=== PATIENT | male | born 1985 | race Caucasian/White ===

== ENCOUNTER 2017-09-01 22:11 | Emergency (ER) | payer MEDICAID, OTHER ==
[~2017-09-01] VITALS: Ht 170.2 cm; Wt 74.8 kg
[~2017-09-01 22:11] MED LIST: COLACE100 MG ORAL; FERROUS SULFAT325 MG ORAL; SENNA S TABLET1 EAC1 PO; SEROQUEL25 MG ORAL; VITAMIN D400 INTLU ORAL
[2017-09-01 22:20] VITALS: BP 132/98
[2017-09-01] MEDS ORDERED: SENNOSIDES8.6 MG ORAL (22:31)
[2017-09-01] MEDS ORDERED: ACETAMINOPHEN325 M1 ORAL (22:31)
[2017-09-01] MEDS ORDERED: ALUM-MAG HYDRO360 ML PO (22:31)
[2017-09-01] MEDS ORDERED: VENTOLIN HFA18 GM INH (22:31)
[2017-09-01] MEDS ORDERED: DEPAKOTE250 MG PO (22:31)
[2017-09-01] MEDS ORDERED: IMODIUM A-D2 M2 PO (22:31)
[2017-09-01] MEDS ORDERED: MILK OF MA400 MG/51 ORAL (22:31)
[2017-09-01] MEDS ORDERED: ARNUITY ELLIP100 MCG IH (22:31)
[2017-09-01 22:48] LABS: BASOPHILS % (AUTO) 1.9 % (0.0-2.0); EOSINOPHILS % (AUTO) 6.1 % (0.0-3.0); HEMATOCRIT 34.3 % (42.0-52.0); HEMOGLOBIN 11.5 G/DL (14.2-18.0); LYMPHOCYTES % (AUTO) 15.2 % (20.0-45.0); MEAN CORPUSCULAR VOLUME 90 FL (80-99); MONOCYTES % (AUTO) 7.6 % (1.0-10.0); NEUTROPHILS % (AUTO) 69.2 % (45.0-75.0); PLATELET COUNT 103 K/UL (150-450); RED BLOOD COUNT 3.82 M/UL (4.70-6.10); WHITE BLOOD COUNT 7.4 K/UL (4.8-10.8)
[2017-09-01 22:56] LABS: ANION GAP 10 mmol/L (5-15); BLOOD UREA NITROGEN 36 mg/dL (7-18); CALCIUM 7.9 MG/DL (8.5-10.1); CARBON DIOXIDE 24 MMOL/L (21-32); CHLORIDE 109 MMOL/L (98-107); CREATININE 1.8 MG/DL (0.55-1.30); POTASSIUM 3.9 MMOL/L (3.5-5.1); SODIUM 143 MMOL/L (136-145)
[2017-09-01 22:59] LABS: ALANINE AMINOTRANSFERASE 15 U/L (12-78); ALBUMIN 3.2 G/DL (3.4-5.0); ALKALINE PHOSPHATASE 45 U/L (46-116); ASPARTATE AMINO TRANSFERASE 13 U/L (15-37); BILIRUBIN,TOTAL 0.2 MG/DL (0.2-1.0); CREATINE KINASE 113 U/L (26-308)
[2017-09-01] MEDS ORDERED: Depakote 500mg tab ORAL ONE (23:15)
--- NOTE | 2017-09-01 23:16 | Emergency Room Report ---
History of Present Illness General Chief Complaint: Seizure Source: Patient, EMS Present Illness HPI The patient presents from a senior living facility via EMS after having a seizure. 10 mg of Versed were given to the patient on transport. The patient is longer seizing at this time. There was some oral trauma. The patient is taking Depakote for bipolar disorder and also for seizures. He is in a facility where he is supposed to be getting his medication and claims that he has been able to take his medication. The patient denies fevers, head trauma, nausea, vomiting, diarrhea, dysuria, joint pain. He denies pain in his mouth. The patient is status post stroke and has left hemiparesis but able to ambulate. The patient is bipolar. The patient states that these not been getting enough sleep because his roommates been bothering him. Sclerae asking his private doctor for something to help him sleep at night. He denies suicidal or homicidal ideation Allergies: Coded Allergies: NO KNOWN DRUG ALLERGIES (Unverified Allergy, Unknown, 08/12/14) Patient History Past Medical History: see triage record Social History: Reports: smoking; Denies: alcohol use, drug use Social History Narrative senior living facility Reviewed Nursing Documentation: PMH: Agreed; PSxH: Agreed Nursing Documentation-PMH Hx Cardiac Problems: Yes - Aortic Valve Disorder Hx Hypertension: Yes Hx Cancer: No Hx Gastrointestinal Problems: Yes History Of Psychiatric Problem: Yes - bipolar, anxiety disorder, insomnia Hx Neurological Problems: Yes Review of Systems All Other Systems: negative except mentioned in HPI Physical Exam Vital Signs Date Time Temp Pulse Resp B/P (MAP) Pulse Ox O2 Delivery O2 Flow Rate FiO2 09/01/17 22:01 98.0 84 18 132/98 100 Non-Rebreather 15.0 98.1 Sp02 EP Interpretation: reviewed, normal General Appearance: no apparent distress, other - GCS 14, Chronically Ill, Postictal Head: normocephalic, atraumatic Eyes: bilateral eye PERRL, bilateral eye abnormal EOM - slight nystagmus, bilateral eye Scleral Injection ENT: moist mucus membranes, other - trauma to lower lip Neck: supple Respiratory: lungs clear, normal breath sounds Cardiovascular #1: regular rate, rhythm Cardiovascular #2: 2+ radial (R) Gastrointestinal: normal inspection, normal bowel sounds, non tender, no mass, non-distended Musculoskeletal: back normal, normal range of motion Neurologic: alert, 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 He has a history of seizures. He is on Depakote allegedly for bipolar disorder. Differential includes breakthrough seizure, subtherapeutic medication level, electrolyte abnormalities, occult infection amongst others. Evaluation will be with EKG, chest x-ray and labs including Depakote level. EKG is sinus rhythm with left ventricular hypertrophy and peaked T waves. Chest x-ray is unremarkable. Labs are significant for subtherapeutic at apical level. The patient is given Depakote 500 mg by mouth. The patient observed and stable here. It's felt that he probably seized because of subtherapeutic Depakote (along with lack of sleep and some agitation about room-mate). He's coming from senior living facility and will be observed here. We will increase his Depakote oral intake by 250 mg twice a day. His total dose will be 750 mg twice a day. He fully conversant and ambulatory. Still with L sided weakness (chronic). Patient stable for outpatient observation and treatment Laboratory Tests Test 09/01/17 00:00 09/01/17 22:10 Urine Color Pale yellow Urine Appearance Clear Urine pH 7 (4.5-8.0) Urine Specific [place] 1.005 (1.005-1.035) Urine Protein 2+ (NEGATIVE) H Urine Glucose (UA) Negative (NEGATIVE) Urine Ketones Negative (NEGATIVE) Urine Occult Blood Negative (NEGATIVE) Urine Nitrite Negative (NEGATIVE) Urine Bilirubin Negative (NEGATIVE) Urine Urobilinogen Normal MG/DL (0.0-1.0) Urine Leukocyte Esterase Negative (NEGATIVE) Urine RBC Pending Urine WBC Pending Urine Squamous Epithelial Cells Pending Urine Bacteria Pending Urine Opiates Screen Negative (NEGATIVE) Urine Barbiturates Screen Negative (NEGATIVE) Phencyclidine (PCP) Screen Negative (NEGATIVE) Urine Amphetamines Screen Negative (NEGATIVE) Urine Benzodiazepines Screen Positive (NEGATIVE) H Urine Cocaine Screen Negative (NEGATIVE) Urine Marijuana (THC) Screen Negative (NEGATIVE) White Blood Count 7.4 K/UL (4.8-10.8) Red Blood Count 3.82 M/UL (4.70-6.10) L Hemoglobin 11.5 G/DL (14.2-18.0) L Hematocrit 34.3 % (42.0-52.0) L Mean Corpuscular Volume 90 FL (80-99) Mean Corpuscular Hemoglobin 30.1 PG (27.0-31.0) Mean Corpuscular Hemoglobin Concent 33.5 G/DL (32.0-36.0) Red Cell Distribution Width 12.0 % (11.6-14.8) Platelet Count 103 K/UL (150-450) L Mean Platelet Volume 13.5 FL (6.5-10.1) H Neutrophils (%) (Auto) 69.2 % (45.0-75.0) Lymphocytes (%) (Auto) 15.2 % (20.0-45.0) L Monocytes (%) (Auto) 7.6 % (1.0-10.0) Eosinophils (%) (Auto) 6.1 % (0.0-3.0) H Basophils (%) (Auto) 1.9 % (0.0-2.0) Sodium Level 143 MMOL/L (136-145) Potassium Level 3.9 MMOL/L (3.5-5.1) Chloride Level 109 MMOL/L (98-107) H Carbon Dioxide Level 24 MMOL/L (21-32) Anion Gap 10 mmol/L (5-15) Blood Urea Nitrogen 36 mg/dL (7-18) H Creatinine 1.8 MG/DL (0.55-1.30) H Estimate Glomerular Filtration Rate 43.9 mL/min (>60) Glucose Level 90 MG/DL (74-106) Calcium Level 7.9 MG/DL (8.5-10.1) L Total Bilirubin 0.2 MG/DL (0.2-1.0) Aspartate Amino Transferase (AST) 13 U/L (15-37) L Alanine Aminotransferase (ALT) 15 U/L (12-78) Alkaline Phosphatase 45 U/L (46-116) L Total Creatine Kinase 113 U/L (26-308) Total Protein 6.4 G/DL (6.4-8.2) Albumin 3.2 G/DL (3.4-5.0) L Globulin 3.2 g/dL Albumin/Globulin Ratio 1.0 (1.0-2.7) Valproic Acid Level 35 MCG/ML (50-100) L EKG Diagnostic Results Rate: normal Rhythm: NSR ST Segments: no acute changes - peaked T waves Rhythm Strip Diag. Results EP Interpretation: other Rhythm: NSR, no PVC's, no ectopy Chest X-Ray Diagnostic Results Chest X-Ray Diagnostic Results : Chest X-Ray Ordered: Yes # of Views/Limited/Complete: 1 View Indication: Other EP Interpretation: Yes Interpretation: no consolidation, no effusion, no pneumothorax Impression: No acute disease Electronically Signed by: Electronically signed by Augustus Bae MD Last Vital Signs Date Time Temp Pulse Resp B/P (MAP) Pulse Ox O2 Delivery O2 Flow Rate FiO2 09/02/17 04:40 98.1 82 18 108/33 96 Room Air 15.0 98.1 Status: improved Disposition: XFER SNF Condition: Improved Referrals: KARENA PACHECO (PCP) Augustus Bae M.D. Sep 01, 2017 23:16
[2017-09-02 00:41] VITALS: BP 108/33
[2017-09-02 01:13] LABS: APPEARANCE,URINE CLEAR; BILIRUBIN, URINE NEGATIVE (NEGATIVE); COLOR,URINE PALE YELLOW; GLUCOSE, URINE (UA) NEGATIVE (NEGATIVE); KETONES,URINE NEGATIVE (NEGATIVE); LEUKOCYTE ESTERASE ,URINE NEGATIVE (NEGATIVE); NITRITE,URINE NEGATIVE (NEGATIVE); PH,URINE 7 (4.5-8.0); PROTEIN,URINE 2+ (NEGATIVE); UROBILINOGEN,URINE NORMAL MG/DL (0.0-1.0)
[2017-09-02 04:15] VITALS: BP 115/45
[2017-09-02 04:40] VITALS: BP 108/33
--- NOTE | 2017-09-02 08:58 | Diagnostic Imaging Report ---
Indication: Shortness of breath Technique: XRAY Chest 1v Comparison: 08/12/2014 Findings: Cardiac silhouette is prominent. There is mild pulmonary vascular congestion. There is no consolidation or pleural effusion. Osseous structures are grossly stable. Impression: Cardiomegaly. Mild pulmonary vascular congestion. Clinical correlation/follow-up recommended.
== END 2017-09-02 04:36 ==
LOC: EDBD 22:11 → EMR 22:15
DX: G40.409 Other generalized epilepsy and epileptic syndromes, not intractable, without status epilepticus (principal); Z91.14 Patient's other noncompliance with medication regimen; Z86.73 Personal history of transient ischemic attack (TIA), and cerebral infarction without residual deficits; I10 Essential (primary) hypertension; F31.9 Bipolar disorder, unspecified; F41.9 Anxiety disorder, unspecified; G47.00 Insomnia, unspecified; R06.02 Shortness of breath
CPT/HCPCS: 36415; 71045; 80053; 80164; 80307; 81003; 82550; 85025; 93005; 96374; 96375; 99284

== ENCOUNTER 2018-03-10 22:06 | Emergency (ER) | payer OTHER ==
[~2018-03-10] VITALS: Ht 170.2 cm; Wt 59.0 kg
[~2018-03-10 22:06] MED LIST changes: +ACETAMINOPHEN325 M1 ORAL; +ALUM-MAG HYDRO360 ML PO; +ARNUITY ELLIP100 MCG IH; +DEPAKOTE250 MG PO; +IMODIUM A-D2 M2 PO; +MILK OF MA400 MG/51 ORAL; +SENNOSIDES8.6 MG ORAL; +VENTOLIN HFA18 GM INH
[2018-03-10 22:42] LABS: BASOPHILS % (AUTO) 1.1 % (0.0-2.0); EOSINOPHILS % (AUTO) 1.6 % (0.0-3.0); HEMATOCRIT 32.8 % (42.0-52.0); HEMOGLOBIN 11.6 G/DL (14.2-18.0); LYMPHOCYTES % (AUTO) 7.6 % (20.0-45.0); MEAN CORPUSCULAR VOLUME 91 FL (80-99); MONOCYTES % (AUTO) 5.1 % (1.0-10.0); NEUTROPHILS % (AUTO) 84.6 % (45.0-75.0); PLATELET COUNT 123 K/UL (150-450); RED BLOOD COUNT 3.61 M/UL (4.70-6.10); RED CELL DISTRIBUTION WIDTH 11.2 % (11.6-14.8); WHITE BLOOD COUNT 12.4 K/UL (4.8-10.8)
[2018-03-10 22:48] LABS: ANION GAP 9 mmol/L (5-15); BLOOD UREA NITROGEN 33 mg/dL (7-18); CALCIUM 9.4 MG/DL (8.5-10.1); CARBON DIOXIDE 26 MMOL/L (21-32); CHLORIDE 106 MMOL/L (98-107); CREATININE 1.7 MG/DL (0.55-1.30); POTASSIUM 4.4 MMOL/L (3.5-5.1); SODIUM 141 MMOL/L (136-145)
[2018-03-10 22:53] LABS: BILIRUBIN, URINE NEGATIVE (NEGATIVE); COLOR,URINE PALE YELLOW; GLUCOSE, URINE (UA) NEGATIVE (NEGATIVE); KETONES,URINE NEGATIVE (NEGATIVE); LEUKOCYTE ESTERASE ,URINE 1+ (NEGATIVE); NITRITE,URINE NEGATIVE (NEGATIVE); PH,URINE 6 (4.5-8.0); PROTEIN,URINE 4+ (NEGATIVE); UROBILINOGEN,URINE NORMAL MG/DL (0.0-1.0)
[2018-03-10 23:01] VITALS: BP 170/77
[2018-03-10 23:13] LABS: APPEARANCE,URINE CLEAR
--- NOTE | 2018-03-10 23:13 | Emergency Room Report ---
History of Present Illness General Chief Complaint: Seizure Source: Patient, Medical Record, EMS Present Illness HPI This a 32-year-old male who is a long-term patient. He has a history of seizure and anoxic brain injury. He presents with chief complaint of a seizure. 3 episodes today. Each lasting anywhere from 30 seconds to 1-2 minutes. EMS gave him 5 motor Versed. Seizures tonic/clonic in nature. No trauma. No incontinence of bowel or urine. No oral trauma. Allergies: Coded Allergies: NO KNOWN DRUG ALLERGIES (Unverified Allergy, Unknown, 08/12/14) Patient History Past Medical History: see triage record, old chart reviewed, seizures Past Surgical History: other Pertinent Family History: none Social History: Denies: smoking Immunizations: other Reviewed Nursing Documentation: PMH: Agreed; PSxH: Agreed Nursing Documentation-PMH Past Medical History: No History, Except For Hx Cardiac Problems: Yes - Aortic Valve Disorder Hx Hypertension: Yes Hx Cancer: No Hx Gastrointestinal Problems: Yes Hx Dialysis: No - renal failure Hx Neurological Problems: Yes Hx Cerebrovascular Accident: Yes Hx Seizures: Yes Review of Systems Eye: Denies: eye pain, blurred vision ENT: Denies: ear pain, nose congestion, throat swelling Respiratory: Denies: cough, shortness of breath Cardiovascular: Denies: chest pain, palpitations Gastrointestinal: Denies: abdominal pain, diarrhea, nausea, vomiting Musculoskeletal: Denies: back pain, joint pain Skin: Denies: rash Neurological: Denies: headache, numbness Endocrine: Denies: increased thirst, increased urine Hematologic/Lymphatic: Denies: easy bruising All Other Systems: negative except mentioned in HPI Physical Exam Vital Signs Date Time Temp Pulse Resp B/P (MAP) Pulse Ox O2 Delivery O2 Flow Rate FiO2 03/10/18 21:58 97.9 102 18 170/77 98 Room Air vital normal Sp02 EP Interpretation: reviewed, normal General Appearance: well appearing, no apparent distress, alert Head: normocephalic, atraumatic Eyes: bilateral eye PERRL, bilateral eye EOMI ENT: hearing grossly normal, normal pharynx Neck: full range of motion, supple, no meningismus Respiratory: chest non-tender, lungs clear, normal breath sounds Cardiovascular #1: regular rate, rhythm, no murmur Gastrointestinal: normal bowel sounds, non tender, no mass, no organomegaly, no bruit, non-distended Musculoskeletal: back normal, normal range of motion, other - no deformity Neurologic: alert, grossly normal Psychiatric: mood/affect normal Skin: warm/dry Medical Decision Making Diagnostic Impression: Primary Impression: Seizure disorder ER Course Patient with seizure disorder. His Depakote level is slightly low normal. I gave him half dose loading to bring it higher. No evidence of any focal deficit or injury to warrant CT scan. We'll discharge back to long-term. Lab Results Impression labs unremarkable Rhythm Strip Diag. Results Rhythm Strip Time: 23:12 EP Interpretation: yes Rate: 80 Rhythm: NSR, no PVC's, no ectopy Last Vital Signs Date Time Temp Pulse Resp B/P (MAP) Pulse Ox O2 Delivery O2 Flow Rate FiO2 03/10/18 23:01 102 18 Room Air 03/10/18 23:01 97.9 170/77 98 Status: improved Disposition: XFER SNF Condition: Stable Referrals: [facility]ERR[facility] (PCP) Patient Instructions: Seizure, Adult Additional Instructions: Follow-up with your doctor in 7 days. Return if worse. Gopal Martinez MD Mar 10, 2018 23:12
[2018-03-10] MEDS ORDERED: Valproate Sodium INJ 500 MG in D5W 55 ML IVPB ONE (23:15)
[2018-03-11] VITALS: BP 111/40
[2018-03-11 00:05] VITALS: BP 111/40
== END 2018-03-11 00:05 ==
LOC: EDBD 22:06 → EMR 22:33
DX: G40.802 Other epilepsy, not intractable, without status epilepticus (principal); G93.1 Anoxic brain damage, not elsewhere classified; I10 Essential (primary) hypertension; I35.8 Other nonrheumatic aortic valve disorders; Z86.73 Personal history of transient ischemic attack (TIA), and cerebral infarction without residual deficits
CPT/HCPCS: 36415; 80048; 80164; 81001; 85025; 96365; 99284

== ENCOUNTER 2019-12-09 20:19 | Emergency (ER) | payer OTHER ==
[~2019-12-09] VITALS: Ht 170.2 cm; Wt 72.6 kg
--- NOTE | 2019-12-09 20:25 | Emergency Room Report ---
History of Present Illness General Chief Complaint: Seizure Source: Patient, Medical Record Present Illness HPI Patient is a 34-year-old male sent in from [facility] after seizure. Prior history of seizure disorder. Patient previous CVA and had been taking Depakote. Had approximately 20 minutes of seizure activity at the facility. Patient been given Versed 5 mg by EMS. Patient was subsequently postictal. Prior history of bipolar disorder. Previous tracheostomy. Recent negative coronavirus testing. 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 COVID-19 Screening: Negative COVID-19 COVID-19 Testing Source: SNF, 11/27 Patient History Past Medical History: see triage record Reviewed Nursing Documentation: PMH: Agreed; PSxH: Agreed Nursing Documentation-PMH Past Medical History: No History, Except For Hx Cardiac Problems: Yes - Aortic Valve Disorder Hx Hypertension: Yes Hx Cancer: No Hx Gastrointestinal Problems: Yes Hx Neurological Problems: Yes Hx Seizures: Yes Review of Systems All Other Systems: negative except mentioned in HPI Physical Exam Sp02 EP Interpretation: reviewed, normal General Appearance: normal inspection, well appearing, no apparent distress, alert, GCS 15 Head: atraumatic ENT: normal ENT inspection, hearing grossly normal, normal voice Neck: normal inspection, full range of motion, supple, no bony tend Respiratory: normal inspection, lungs clear, normal breath sounds, no respiratory distress, no retraction, no wheezing Cardiovascular #1: regular rate, rhythm, no edema Gastrointestinal: normal inspection, normal bowel sounds, non tender, soft, no guarding, no hernia Genitourinary: no CVA tenderness Musculoskeletal: normal inspection, back normal Neurologic: alert, oriented x3, responsive, normal inspection, other - slight aphasia Psychiatric: normal inspection, judgement/insight normal, mood/affect normal Skin: no rash Medical Decision Making Diagnostic Impression: Primary Impression: Acute renal failure (ARF) Additional Impression: Epileptic seizure, generalized ER Course Patient presented for seizure. Differential diagnosis include was not limited to subtherapeutic anticonvulsant level, CVA, pseudoseizure, electrolyte abnormality among others. Because of complexity of patient's case laboratory tests and imaging studies were ordered.T imaging showed no evidence of acute intracranial pathology with previous CVA. Laboratory testing showed evolution of the BUN creatinine consistent with acute renal sufficiency and possible dehydration. Patient had improvement in his mental status over time. Urinalysis showed no evidence of infection.Patient was noted to have improvement in mental status back to baseline. Will sent back to facility after discussion with Dr. Golden. Labs Test 12/09/19 20:27 White Blood Count 9.3 K/UL (4.8-10.8) Red Blood Count 3.54 M/UL (4.70-6.10) Hemoglobin 11.2 G/DL (14.2-18.0) Hematocrit 32.8 % (42.0-52.0) Mean Corpuscular Volume 93 FL (80-99) Mean Corpuscular Hemoglobin 31.8 PG (27.0-31.0) Mean Corpuscular Hemoglobin Concent 34.3 G/DL (32.0-36.0) Red Cell Distribution Width 12.5 % (11.6-14.8) Platelet Count 116 K/UL (150-450) Mean Platelet Volume 12.5 FL (6.5-10.1) Neutrophils (%) (Auto) 76.4 % (45.0-75.0) Lymphocytes (%) (Auto) 12.3 % (20.0-45.0) Monocytes (%) (Auto) 7.1 % (1.0-10.0) Eosinophils (%) (Auto) 2.6 % (0.0-3.0) Basophils (%) (Auto) 1.7 % (0.0-2.0) Sodium Level 139 MMOL/L (136-145) Potassium Level 4.6 MMOL/L (3.5-5.1) Chloride Level 105 MMOL/L (98-107) Carbon Dioxide Level 24 MMOL/L (21-32) Anion Gap 10 mmol/L (5-15) Blood Urea Nitrogen 31 mg/dL (7-18) Creatinine 2.0 MG/DL (0.55-1.30) Estimat Glomerular Filtration Rate 38.4 mL/min (>60) Glucose Level 150 MG/DL (74-106) Calcium Level 8.9 MG/DL (8.5-10.1) Total Bilirubin 0.3 MG/DL (0.2-1.0) Aspartate Amino Transf (AST/SGOT) 19 U/L (15-37) Alanine Aminotransferase (ALT/SGPT) 19 U/L (12-78) Alkaline Phosphatase 60 U/L (46-116) Total Creatine Kinase 204 U/L (26-308) Troponin I 0.022 ng/mL (0.000-0.056) Total Protein 7.3 G/DL (6.4-8.2) Albumin 4.0 G/DL (3.4-5.0) Globulin 3.3 g/dL Albumin/Globulin Ratio 1.2 (1.0-2.7) Valproic Acid (Depakene) Level 53 MCG/ML (50-100) Status: improved Disposition: ADMITTED INPATIENT Condition: Improved Jeremias Contreras MD Dec 09, 2019 20:25
--- NOTE | 2019-12-09 20:30 | NUR ---
ED Nurse Note: pt OTIS WARREN RA 26 from [facility] for sz. per medical record, pt has h/o sz and was given his regular dose of depakote earlier today at regular time. Sz was witnessed by SNF staff who states pt was seizing for 20 min while he was in bed, no head trauma was witnessed. EMS report adminsitering 5 mg of versed. pt presents with 20 g IV to L hand, able to follow commands, appears to have dried vomitus on his shirt, VSS on room air with mask on. Addendum: 12/09/19 at 2034 by CORNEL ED Nurse Note: all sz safety precautions are in place
[2019-12-09 20:33] VITALS: BP 118/52
--- NOTE | 2019-12-09 20:33 | NUR ---
ED Nurse Note: pt transported to CT via gurney with IV fludis running per ERMD order
[2019-12-09] MEDS ORDERED: GUAIFENESI100 MG/5 M ORAL (20:34)
[2019-12-09] MEDS ORDERED: RENA-VITE TABL0.8 M1 PO (20:34)
--- NOTE | 2019-12-09 20:39 | NUR ---
ED Nurse Note: pt returned from CT, no airway oral trauma noted, pt is drowsy but arousable and follows commands. VSS on patient monitor
[2019-12-09 20:48] LABS: ANION GAP 10 mmol/L (5-15); BLOOD UREA NITROGEN 31 mg/dL (7-18); CALCIUM 8.9 MG/DL (8.5-10.1); CARBON DIOXIDE 24 MMOL/L (21-32); CHLORIDE 105 MMOL/L (98-107); POTASSIUM 4.6 MMOL/L (3.5-5.1); SODIUM 139 MMOL/L (136-145)
[2019-12-09 20:53] LABS: ALANINE AMINOTRANSFERASE 19 U/L (12-78); ALBUMIN/GLOBULIN RATIO 1.2 (1.0-2.7); ALKALINE PHOSPHATASE 60 U/L (46-116); ASPARTATE AMINO TRANSFERASE 19 U/L (15-37); BILIRUBIN,TOTAL 0.3 MG/DL (0.2-1.0); CREATINE KINASE 204 U/L (26-308)
[2019-12-09 20:56] LABS: BASOPHILS % (AUTO) 1.7 % (0.0-2.0); EOSINOPHILS % (AUTO) 2.6 % (0.0-3.0); HEMATOCRIT 32.8 % (42.0-52.0); HEMOGLOBIN 11.2 G/DL (14.2-18.0); LYMPHOCYTES % (AUTO) 12.3 % (20.0-45.0); MEAN CORPUSCULAR VOLUME 93 FL (80-99); MONOCYTES % (AUTO) 7.1 % (1.0-10.0); NEUTROPHILS % (AUTO) 76.4 % (45.0-75.0); PLATELET COUNT 116 K/UL (150-450); RED BLOOD COUNT 3.54 M/UL (4.70-6.10); RED CELL DISTRIBUTION WIDTH 12.5 % (11.6-14.8); WHITE BLOOD COUNT 9.3 K/UL (4.8-10.8)
--- NOTE | 2019-12-09 21:16 | NUR ---
ED Nurse Note: Cindom cath applied. awaiting for pt to urinate for urine sample.
--- NOTE | 2019-12-09 21:22 | Diagnostic Imaging Report ---
EXAM: CT Head Without Intravenous Contrast CLINICAL HISTORY: AMS TECHNIQUE: Axial computed tomography images of the head/brain without intravenous contrast. CTDI is 53.4 mGy and DLP is 961 mGy-cm. One or more of the following dose reduction techniques were used: automated exposure control, adjustment of the mA and/or kV according to patient size, use of iterative reconstruction technique. COMPARISON: No relevant prior studies available. FINDINGS: Brain: No hemorrhage. No edema. Encephalomalacia in the right cerebral hemisphere with ex vacuo dilatation of the right lateral ventricle. Component of cerebral atrophy. Ventricles: No ventriculomegaly. Bones/joints: No acute fracture. Soft tissues: Unremarkable. Sinuses: No acute sinusitis. Mastoid air cells: No mastoid effusion. IMPRESSION: No acute intracranial process.
--- NOTE | 2019-12-09 21:35 | NUR ---
ED Nurse Note: Iona (mother) : [phone]
--- NOTE | 2019-12-09 21:46 | NUR ---
ED Nurse Note: pt is more awake and alert now, able to answer questions. states that he recalls having the sz, he had a feeling of "passing out." pt also reports that he has not had a sz for years. pt provided urine sample, collected and sent to lab Addendum: 12/09/19 at 2148 by CORNEL all sz safety precautions are in place, IV fluids running per ERMD orders
[2019-12-09 21:59] LABS: APPEARANCE,URINE SLIGHTLY CLOUDY; BILIRUBIN, URINE NEGATIVE (NEGATIVE); COLOR,URINE PALE YELLOW; GLUCOSE, URINE (UA) NEGATIVE (NEGATIVE); KETONES,URINE NEGATIVE (NEGATIVE); LEUKOCYTE ESTERASE ,URINE NEGATIVE (NEGATIVE); NITRITE,URINE NEGATIVE (NEGATIVE); PH,URINE 6.5 (4.5-8.0); PROTEIN,URINE 3+ (NEGATIVE); UROBILINOGEN,URINE NORMAL MG/DL (0.0-1.0)
[2019-12-09 22:43] VITALS: BP 118/81
--- NOTE | 2019-12-09 23:19 | NUR ---
informed mely from [facility] about patient's return. states that patient will be going to station 3.
--- NOTE | 2019-12-10 00:11 | NUR ---
ED Nurse Note: [id number] here to transport pt back home
[2019-12-10 00:15] VITALS: BP 118/81
== END 2019-12-10 00:15 ==
LOC: EDBD 20:19 → EMR 20:54 → CANBEDREQ 23:09 → EMR 12-10 00:15
DX: G40.909 Epilepsy, unspecified, not intractable, without status epilepticus (principal); N17.9 Acute kidney failure, unspecified; I10 Essential (primary) hypertension; Z86.73 Personal history of transient ischemic attack (TIA), and cerebral infarction without residual deficits; F31.9 Bipolar disorder, unspecified
CPT/HCPCS: 36415; 70450; 80053; 80164; 81003; 82550; 84484; 85025; 93005; 96360; J7030; Z7502; 99284